=== PATIENT | male | born 1995 | race Caucasian/White ===

== ENCOUNTER 2017-01-16 13:46 | Emergency (ER) | payer OTHER ==
[~2017-01-16] VITALS: Wt 136.0 kg
[~2017-01-16 13:46] MED LIST: BACTDS PO; CEPH-443 PO; IBUP-1542 PO; IBUP800T25 PO; TRAM50TA2 PO
[2017-01-16 16:17] LABS: URINE BLOOD (Dip) POC Negative (NEGATIVE)
--- NOTE | 2017-01-16 16:31 | RADRPT ---
PROCEDURE: XR Lumbar Spine. CLINICAL INDICATION: Pain. TECHNIQUE: AP, lateral and cone-down lateral view of the lumbar spine were obtained. COMPARISON: No prior studies are available for comparison. FINDINGS: There are 5 lumbar vertebra. The sacrum and SI joints are normal. The intervertebral disk spaces, neural canal and nerve root foramina are unremarkable. The articular facets are normal. No disk bu lge or herniations identified. There is no evidence of spondylolysis or spondylolisthesis. IMPRESSION: 1. Unremarkable lumbar spine. RPTAT:AAJJ Physician Carly Date Time Electronically viewed and signed by Physician Carly on 01/16/2017 16:31 /
[2017-01-16] MEDS ORDERED: IBUP800T25 PO (16:50)
--- NOTE | 2017-01-16 16:53 | ERD ---
ER Documentation Chief Complaint Date/Time DATE: 01/16/17 TIME: 16:51 Chief Complaint low back pain from a slip and fall 3 days ago , no neuro deficit HPI This 21-year-old male presents with right-sided flank pain after near fall 3 days ago. He slipped on a wet floor and caught himself but extension of his legs. Denies direct trauma. Denies any bowel or bladder incontinence, fevers, weakness. ROS All systems reviewed and are negative except as per history of present illness. Medications Home Meds Active Scripts Ibuprofen* (Motrin*) 800 Mg Tab, 800 MG PO Q6, #20 TAB Prov:MAREN KRUEGER MD 01/16/17 Ibuprofen* (Motrin*) 600 Mg Tab, 600 MG PO Q6, #30 TAB Prov:ALFREDO COLIN 05/30/16 Ibuprofen* (Motrin*) 800 Mg Tab, 800 MG PO Q8 Y for PAIN AND OR ELEVATED TEMP, # 30 TAB Prov:OSEAS CARNEY POLE SHAVER HELPER 05/06/16 Sulfamethoxazole-Trimethoprim* (Bactrim* DS) 800-160 Mg Tab, 1 TAB PO BID for 7 Days, TAB Prov:OSEAS CARNEY. POLE SHAVER HELPER 05/06/16 Cephalexin* (Keflex*) 500 Mg Capsule, 500 MG PO QID for 7 Days, CAP Prov:OSEAS CARNEY POLE SHAVER HELPER 05/06/16 Tramadol HCl (Tramadol HCl) 50 Mg Tablet, 50 MG PO Q6 Y for PAIN, #20 TAB Prov:YESI WANG MD 02/25/16 Allergies Allergies: Coded Allergies: No Known Allergy (Unverified , 05/09/16) PMhx/Soc History of Surgery: No Anesthesia Reaction: No Hx Neurological Disorder: No Hx Respiratory Disorders: No Hx Cardiac Disorders: Yes (HTN ) Hx Psychiatric Problems: No Hx Miscellaneous Medical Probl: No Hx Alcohol Use: No Hx Substance Use: No Hx Tobacco Use: No Physical Exam Vitals Vital Signs Date Time Temp Pulse Resp B/P Pulse Ox O2 Delivery O2 Flow Rate FiO2 01/16/17 13:57 98.6 80 21 129/57 98 Physical Exam Const: [] Alert, [id number]. Head: Atraumatic Eyes: Normal Conjunctiva ENT: Normal External Ears, Nose and Mouth. Neck: Full range of motion..~ No meningismus. Resp: Clear to auscultation bilaterally Cardio: Regular rate and rhythm, no murmurs Abd: Soft, non tender, non distended. Normal bowel sounds Skin: No petechiae or rashes Back: No midline tenderness or deformities. Some mild right L2-L3 paraspinous muscle tenderness. Ext: No cyanosis, or edema Neur: Awake and alert. Normal gait. No appreciable focal neurologic deficits. Psych: Normal Mood and Affect Results 24 hrs Laboratory Tests Test 01/16/17 16:19 Bedside Urine Blood Negative Bedside Urine Glucose (UA) Negative Bedside Urine Ketones (LAB) Negative Bedside Urine Leukocyte Esterase (L Negative Bedside Urine Nitrite (LAB) Negative Bedside Urine Protein (LAB) Negative Bedside Urine pH (LAB) 6.0 Procedures/MDM Urine is negative. X-ray LS-Spine 3V Interpreted by me: Bones: [No fracture] Joints: [No dislocation] Foreign body: [None]. Impression abnormal lumbar spine x-ray Patient declines any pain medication. Patient has signs and symptoms of acute lumbar strain. Patient was discharged home with work restrictions by request instructions to follow-up with primary doctor as well as will be given a prescription for ibuprofen for pain. He should return for fevers, weakness, new or worsening symptoms as directed and aftercare instructions. There is no signs or symptoms to suggest cauda equina syndrome, epidural abscess, neurologic deficit, fracture, dislocation. Departure Diagnosis: Primary Impression: Back pain Back pain location: low back pain Chronicity: acute Back pain laterality: right Sciatica presence: without sciatica Qualified Code: M54.5 - Acute right-sided low back pain without sciatica Condition: Stable Patient Instructions: Back Sprain/Strain Additional Instructions: X-ray and urine normal. Likely musculoskeletal strain. Recheck for new or worsening symptoms otherwise recommend stretching at home. MAREN KRUEGER MD Jan 16, 2017 16:53
== END 2017-01-16 17:11 | disposition home or self-care (01) ==
LOC: FTE 13:46
DX: S39.92XA Unspecified injury of lower back, initial encounter (principal); I10 Essential (primary) hypertension; W18.49XA Other slipping, tripping and stumbling without falling, initial encounter; Y92.9 Unspecified place or not applicable
CPT/HCPCS: 72100; 81003; Z7502

== ENCOUNTER 2017-01-31 21:44 | Emergency (ER) | payer SELFPAY ==
[~2017-01-31] VITALS: Wt 132.3 kg
== END 2017-02-01 00:09 | disposition left against medical advice (07) ==
LOC: FTE 21:44
DX: Z53.21 Procedure and treatment not carried out due to patient leaving prior to being seen by health care provider (principal)

== ENCOUNTER 2017-10-01 17:16 | Emergency (ER) | payer OTHER ==
[~2017-10-01] VITALS: Wt 148.8 kg
[2017-10-01] MEDS ORDERED: ACETAMINOPHEN 500 MG TAB PO STA (20:03)
[2017-10-01] MEDS ORDERED: ONDANSETRON (ODT) 4 MG TAB ODT STA (20:03)
--- NOTE | 2017-10-01 20:22 | ERD ---
ER Documentation Chief Complaint Chief Complaint n/v/d, abd pain, dizzy, chills, fever HPI 22-year-old male presents here to emergency department for complaints of vomiting and diarrhea generalized abdominal pain fever chills lightheadedness that started yesterday. Patient denies any abdominal pain at this time. Patient has been having vomiting and diarrhea, 2 episodes a day, 2 episodes of diarrhea. Patient denies any abdominal pain at this time, describes it as cramping pain intermittent pain accompanying the vomiting and diarrhea. Patient denies any blood in the stool or blood in the vomit. Patient denies any black stool. Patient denies any flank pain. Patient denies any hematuria or dysuria. Patient denies any recent travel. Patient took Aleve at home to help with fever control with mild relief. Patient denies any sick contacts. ROS All systems reviewed and are negative except as per history of present illness. Medications Home Meds Active Scripts Acetaminophen* (Tylophen*) 500 Mg Capsule, 1 CAP PO Q6H Y for PAIN AND OR ELEVATED TEMP, #20 CAP Prov:KATIE CAPUTO NP 10/01/17 Ibuprofen* (Motrin*) 600 Mg Tab, 600 MG PO Q6H Y for PAIN AND OR ELEVATED TEMP, #30 TAB Prov:KATIE CAPUTO NP 10/01/17 Ondansetron (Ondansetron Odt) 4 Mg Tab.rapdis, 4 MG PO Q8 Y for NAUSEA AND/OR VOMITING, #30 TAB Prov:KATIE CAPUTO NP 10/01/17 Dicyclomine Hcl* (Bentyl*) 10 Mg Capsule, 10 MG PO QID, #20 CAP Prov:KATIE CAPUTO NP 10/01/17 Ibuprofen* (Motrin*) 800 Mg Tab, 800 MG PO Q6, #20 TAB Prov:MAREN KRUEGER MD 01/16/17 Ibuprofen* (Motrin*) 600 Mg Tab, 600 MG PO Q6, #30 TAB Prov:ALFREDO COLIN 05/30/16 Ibuprofen* (Motrin*) 800 Mg Tab, 800 MG PO Q8 Y for PAIN AND OR ELEVATED TEMP, # 30 TAB Prov:OSEAS CARNEY NP 05/06/16 Sulfamethoxazole-Trimethoprim* (Bactrim* DS) 800-160 Mg Tab, 1 TAB PO BID for 7 Days, TAB Prov:OSEAS CARNEY. MOBILE LOUNGE DRIVER OR OPERATOR 05/06/16 Cephalexin* (Keflex*) 500 Mg Capsule, 500 MG PO QID for 7 Days, CAP Prov:OSEAS CARNEY. MOBILE LOUNGE DRIVER OR OPERATOR 05/06/16 Tramadol HCl (Tramadol HCl) 50 Mg Tablet, 50 MG PO Q6 Y for PAIN, #20 TAB Prov:YESI WANG MD 02/25/16 Allergies Allergies: Coded Allergies: No Known Allergy (Unverified , 05/09/16) PMhx/Soc History of Surgery: No Anesthesia Reaction: No Hx Neurological Disorder: No Hx Respiratory Disorders: No Hx Cardiac Disorders: Yes (HTN ) Hx Psychiatric Problems: No Hx Miscellaneous Medical Probl: No Hx Alcohol Use: No Hx Substance Use: No Hx Tobacco Use: No FmHx Family History: No coronary disease, No diabetes, No other Physical Exam Vitals Vital Signs Date Time Temp Pulse Resp B/P Pulse Ox O2 Delivery O2 Flow Rate FiO2 10/01/17 21:06 103 10/01/17 20:51 99.6 118 97 Room Air 10/01/17 17:30 101.1 134 20 137/95 96 Physical Exam GENERAL: The patient is well developed and appropriate for usual state of health, in no apparent distress. CHEST: Clear to auscultation bilaterally. There are no rales, wheezes or rhonchi. HEART: Regular rate and rhythm. No murmurs, clicks, rubs or gallops. No S3 or S4. ABDOMEN: Soft, nontender and nondistended. Hyperactive bowel sounds. No rebound or guarding. No gross peritonitis. No gross organomegaly or masses. No Dexter sign or McBurney point tenderness. BACK: No midline or flank tenderness. EXTREMITIES: Equal pulses bilaterally. There is no peripheral clubbing, cyanosis or edema. No focal swelling or erythema. Full range of motion. Grossly neurovascularly intact. NEURO: Alert and oriented. Cranial nerves 2-12 intact. Motor strength in all 4 extremities with 5/5 strength. Sensation grossly intact. Normal speech and gait. SKIN: There is no apparent rash or petechia. The skin is warm and dry. HEMATOLOGIC AND LYMPHATIC: There is no evidence of excessive bruising or lymphedema. No gross cervical, axillary, or inguinal lymphadenopathy. Results 24 hrs Current Medications Medications (Trade) Dose Ordered Sig/Emma Route PRN Reason Start Time Stop Time Status Last Admin Dose Admin Acetaminophen (Tylenol Tab) 1,000 mg ONCE STAT PO 10/01/17 20:03 10/01/17 20:05 DC 10/01/17 20:42 Ibuprofen (Motrin) 600 mg ONCE ONCE PO 10/01/17 20:30 10/01/17 20:31 DC 10/01/17 20:42 Ondansetron HCl (Zofran Odt) 4 mg ONCE STAT ODT 10/01/17 20:03 10/01/17 20:05 DC 10/01/17 20:45 Dicyclomine HCl (Bentyl) 20 mg ONCE ONCE PO 10/01/17 20:30 10/01/17 20:31 DC 10/01/17 20:42 Patient was given medicines for fever control here in the emergency department. After treatment, patient temperature improved and lower. Patient appears well and is hemodynamically stable. Patient was given Zofran here in the emergency department. After treatment, patient was able to tolerate po fluids here in the emergency department without any vomiting. There is no signs and symptoms of dehydration. Bentyl was given here in emergency department, tolerated medication well. Procedures/MDM Medical Decision Making: Patient symptoms of vomiting diarrhea abdominal pain fever is likely consistent with viral gastroenteritis. There is low suspicion for abdominal emergencies at this time. Patients abdominal exam is normal at this time. Patients radiology exam does not show any abdominal emergencies at this time. There is low suspicion for appendicitis, cholecystitis, abdominal aortic aneurysms or peritonitis at this time. There is low suspicion for sepsis. Patient appears well and is hemodynamically stable. Disposition: Home. Condition: Stable Prescription zofran, ibuprofen, tylenol, bentyl Instructions: Patient is advised to take medications as prescribed. Patient is advised to rest, increase fluid intake and do brat diet for next 1-2 days and progress as tolerated. Patient is advised that if symptoms are worse, severe abdominal pain, uncontrolled vomiting, high fever, severe flank pain, worst signs and symptoms, to return to the emergency department immediately. Otherwise, patient can follow up with primary care doctor in 5-7 days. Disclaimer: Inadvertent spelling and grammatical errors are likely due to EHR/ dictation software use and do not reflect on the overall quality of patient care. Also, please note that the electronic time recorded on this note does not necessarily reflect the actual time of the patient encounter. Departure Diagnosis: Primary Impression: Viral gastroenteritis Condition: Stable Patient Instructions: Gastroenteritis, Viral (6Y-Adult) Additional Instructions: Patient is advised to take medications as prescribed. Patient is advised to rest, increase fluid intake and do brat diet for next 1-2 days and progress as tolerated. Patient is advised that if symptoms are worse, severe abdominal pain , uncontrolled vomiting, high fever, severe flank pain, worst signs and symptoms , to return to the emergency department immediately. Otherwise, patient can follow up with primary care doctor in 5-7 days. KATIE CAPUTO NP Oct 01, 2017 20:20
[2017-10-01] MEDS ORDERED: DICY10CA60 PO (20:25)
[2017-10-01] MEDS ORDERED: IBUP-1542 PO (20:25)
[2017-10-01] MEDS ORDERED: ONDA4TAB14 PO (20:25)
[2017-10-01] MEDS ORDERED: ACET500C5 PO (20:25)
[2017-10-01] MEDS ORDERED: IBUPROFEN 600 MG TAB PO ONE (20:30)
[2017-10-01] MEDS ORDERED: DICYCLOMINE 10 MG CAP PO ONE (20:30)
[2017-10-01 20:51] VITALS: TEMP 99.6
[2017-10-01 21:06] VITALS: PULSE 103
== END 2017-10-01 20:58 | disposition home or self-care (01) ==
LOC: FTE 17:16
DX: A08.4 Viral intestinal infection, unspecified (principal); I10 Essential (primary) hypertension
CPT/HCPCS: Z7502; Z7610; 99284

== ENCOUNTER 2017-11-12 12:49 | Emergency (ER) | payer OTHER ==
[~2017-11-12] VITALS: Wt 147.0 kg
[~2017-11-12 12:49] MED LIST changes: +ACET500C5 PO; +DICY10CA60 PO; +ONDA4TAB14 PO
[2017-11-12] MEDS ORDERED: AMOX500C2 PO (14:04)
[2017-11-12] MEDS ORDERED: GUAI-637 PO (14:04)
[2017-11-12] MEDS ORDERED: IBUP-1542 PO (14:04)
[2017-11-12 14:20] VITALS: BP 143/76; PULSE 78; RESP 19; TEMP 98.8
--- NOTE | 2017-11-12 14:27 | ERD ---
ER Documentation Chief Complaint Chief Complaint COUGH/LEFT EAR PAIN XLAST NIGHT HPI This is a 22-year-old male that presents to the ER with a cough, nasal congestion and earache that started yesterday. He does not have any fevers or chills. He denies a sore throat he denies nausea vomiting or diarrhea. He denies any chest pain or shortness of breath. ROS 12 point review of systems was done, all negative except per HPI. Medications Home Meds Active Scripts Ibuprofen* (Motrin*) 600 Mg Tab, 600 MG PO Q6, #30 TAB Prov:ALFREDO COLIN 11/12/17 Guaifenesin* (Robitussin*) 100 Mg/5 Ml Syrup, 200 MG PO Q6H Y for COUGH for 3 Days, ML Prov:ALFREDO COLIN 11/12/17 Amoxicillin* (Amoxicillin*) 500 Mg Cap, 500 MG PO BID for 10 Days, CAP Prov:ALFREDO COLIN 11/12/17 Acetaminophen* (Tylophen*) 500 Mg Capsule, 1 CAP PO Q6H Y for PAIN AND OR ELEVATED TEMP, #20 CAP Prov:KATIE CAPUTO NP 10/01/17 Ibuprofen* (Motrin*) 600 Mg Tab, 600 MG PO Q6H Y for PAIN AND OR ELEVATED TEMP, #30 TAB Prov:KATIE CAPUTO NP 10/01/17 Ondansetron (Ondansetron Odt) 4 Mg Tab.rapdis, 4 MG PO Q8 Y for NAUSEA AND/OR VOMITING, #30 TAB Prov:KATIE CAPUTO NP 10/01/17 Dicyclomine Hcl* (Bentyl*) 10 Mg Capsule, 10 MG PO QID, #20 CAP Prov:KATIE CAPUTO NP 10/01/17 Ibuprofen* (Motrin*) 800 Mg Tab, 800 MG PO Q6, #20 TAB Prov:MAREN KRUEGER MD 01/16/17 Ibuprofen* (Motrin*) 600 Mg Tab, 600 MG PO Q6, #30 TAB Prov:ALFREDO COLIN 05/30/16 Ibuprofen* (Motrin*) 800 Mg Tab, 800 MG PO Q8 Y for PAIN AND OR ELEVATED TEMP, # 30 TAB Prov:OSEAS CARNEY REAL ESTATE AGENCY PRINCIPAL 05/06/16 Sulfamethoxazole-Trimethoprim* (Bactrim* DS) 800-160 Mg Tab, 1 TAB PO BID for 7 Days, TAB Prov:OSEAS CARNEY. REAL ESTATE AGENCY PRINCIPAL 05/06/16 Cephalexin* (Keflex*) 500 Mg Capsule, 500 MG PO QID for 7 Days, CAP Prov:OSEAS CARNEY. REAL ESTATE AGENCY PRINCIPAL 05/06/16 Tramadol HCl (Tramadol HCl) 50 Mg Tablet, 50 MG PO Q6 Y for PAIN, #20 TAB Prov:YESI WANG MD 02/25/16 Allergies Allergies: Coded Allergies: No Known Allergy (Unverified , 05/09/16) PMhx/Soc Medical and Surgical Hx: pt denies Medical Hx, pt denies Surgical Hx History of Surgery: No Anesthesia Reaction: No Hx Neurological Disorder: No Hx Respiratory Disorders: No Hx Cardiac Disorders: No Hx Psychiatric Problems: No Hx Miscellaneous Medical Probl: No Hx Alcohol Use: No Hx Substance Use: Yes (MJ) Hx Tobacco Use: No Smoking Status: Never smoker Physical Exam Vitals Vital Signs Date Time Temp Pulse Resp B/P Pulse Ox O2 Delivery O2 Flow Rate FiO2 11/12/17 14:20 98.8 78 19 143/76 98 Room Air 11/12/17 12:53 98.7 100 12 150/83 98 Physical Exam GENERAL: The patient is well-developed, well-nourished, in no acute distress. NECK: Cervical spine is non tender with no step off. Supple, no nuchal rigidity HEENT: Atraumatic. Pupils equal, round and reactive to light. Extraocular muscles are grossly intact. Conjunctivae pink, no discharge. Left erythematous TM, no mastoid tenderness. Tonsilar erythema with no exudates or uvular deviation. Clear rhinorrhea. RESPIRATORY: Clear to auscultation bilaterally. There are no rales, wheezes or rhonchi. HEART: Regular rate and rhythm. No murmurs, clicks, rubs or gallops. EXTREMITIES: No clubbing or cyanosis. Full range of motion. Grossly neurovascularly intact. NEUROLOGIC: Alert and oriented. Cranial nerves II through XII are intact. SKIN: There is no rash. The skin is warm and dry. Procedures/MDM Differential diagnosis includes but is not limited to; Viral URI, allergic rhinitis, bronchitis, pertussis,pneumonia. This is likely viral in etiology. Clinical suspicion for pneumonia is low as patient appears well, is not hypoxic or in any respiratory distress. Additionally, patient has otitis media. Plan was discussed with patient they understand and agree. Patient needs to follow up with PCP in 1-2 days or return to ER sooner if symptoms worsen. Departure Diagnosis: Primary Impression: Otitis media Additional Impression: Upper respiratory infection Condition: Stable Patient Instructions: Otitis Media, Abx Tx [Child] Additional Instructions: Call your primary care doctor TOMORROW for an appointment during the next 1-2 days.See the doctor sooner or return here if your condition worsens before your appointment time. AFLREDO COLIN Nov 12, 2017 14:27
== END 2017-11-12 14:26 | disposition home or self-care (01) ==
LOC: FTE 12:49
DX: H66.92 Otitis media, unspecified, left ear (principal); J06.9 Acute upper respiratory infection, unspecified
CPT/HCPCS: 99283

== ENCOUNTER 2018-02-02 16:58 | Emergency (ER) | END 2018-02-02 21:35 | disposition home or self-care (01) ==